=== PATIENT | male | born 1980 | race Caucasian/White ===

== ENCOUNTER 2025-06-20 08:51 | Observation (INO) ==
--- NOTE | 2025-06-20 09:06 | Emergency Department Note ---
History of Present Illness General Chief complaint: Constipation Stated complaint: BOWEL OBSTRUCTION Time Seen by Provider: 06/20/25 08:58 History of Present Illness Maximum Pain Intensity: 10 This is a 44-year-old male who presents to the emergency department via private vehicle with complaints of "constipation, dizziness, abdominal pain, nausea". The patient is a 4 hours prior to arrival he began with sudden onset lower abdominal pain and rectal pain. He thought perhaps he may have had a fecal impaction and did try to extricate some of the fecal matter digitally. He notes the pain continues. He does note some bright red blood at the rectal region. He denies any history of abdominal surgeries. Current pain 10/10. No anticoagulant use. Home Medications Medication Instructions Recorded Confirmed Type diclofenac sodium 1 % topical gel 2 g topical QID 07/24/22 06/20/25 History dextroamphetamine-amphetamine 30 30 mg PO BID 30 days #60 tabs 06/13/25 06/20/25 Rx mg tablet (Adderall) hydroxyzine HCl 25 mg tablet 25 mg PO BID PRN anxiety #60 tabs 06/13/25 06/20/25 Rx Allergies Allergy/AdvReac Type Severity Reaction Status Date / Time LOCALANESTHETIC Allergy Unknown Uncoded 06/13/25 11:28 local anesthetic AdvReac Unknown Uncoded 06/13/25 11:28 Past Med/Surg History Problem List (Updated 06/20/25 @ 12:59 by Carlos Rose PA-C) Constipation (Acute) Anxiety Elevated LDL cholesterol level ADHD (Chronic) Medical History Family history of colon cancer URI (upper respiratory infection) Family history of colon cancer requiring screening colonoscopy COVID-19 Family History Denies family history of Ovarian cancer Prostate cancer Breast cancer Colorectal cancer Social History Smoking Status: Never smoker Tobacco Type: Smokeless Tobacco (Dip or Chew) Age Started Using Tobacco: 18; Age Quit Using Tobacco: 32; packs per day: 1; Second Hand Exposure: Yes; Do You Dip or Chew Tobacco: Yes; Hx Alcohol Use: No Hx Substance Use: No Preferred Language: Bengali Communication Ability: Effective Hearing Ability: Normal marital status: Current Living Situation: Family current occupational status: employed current occupation: [employer] How many Children do You have: 1 Feels Safe at Home: Yes Childhood Exposure to Second-Hand Smoke: Yes Diet: regular caffeine: Yes Dental Care, Regularly: Yes Physical Activity Frequency: 5-6 Times per Week Seatbelt Use: always Sunscreen Use: Yes Assistive Devices: Glasses Review of Systems A total of 10 systems reviewed and were otherwise negative Physical Exam Vital Signs Vital Signs - 24 hr 06/20/25 08:53 06/20/25 09:23 06/20/25 09:24 Temperature 36.1 C L Temperature Source Temporal Artery Scan Pulse Rate 74 60 Pulse Rate [Apical] Pulse Rate from SpO2 Sensor Respiratory Rate 16 Respiratory Effort / Characteristics Non-Labored Respiratory Depth Normal Respiratory Pattern Regular Blood Pressure 112/75 Blood Pressure [Left Arm] Blood Pressure Mean 87 Blood Pressure Mean [Left Arm] Pulse Oximetry 96 97 Oxygen Delivery Method Room Air Room Air Sepsis Recent Fever Within 48 Hours No Sepsis New/Unexplained Change in Mental Status N/A Sepsis Action Taken by Nursing No Action Required 06/20/25 09:45 06/20/25 10:52 06/20/25 10:56 Temperature Temperature Source Pulse Rate 66 Pulse Rate [Apical] 57 L Pulse Rate from SpO2 Sensor 67 Respiratory Rate 17 16 Respiratory Effort / Characteristics Respiratory Depth Respiratory Pattern Blood Pressure 113/54 L Blood Pressure [Left Arm] 113/54 L Blood Pressure Mean 75 Blood Pressure Mean [Left Arm] 73 Pulse Oximetry 99 97 Oxygen Delivery Method Room Air Sepsis Recent Fever Within 48 Hours Sepsis New/Unexplained Change in Mental Status Sepsis Action Taken by Nursing 06/20/25 11:58 Temperature Temperature Source Pulse Rate Pulse Rate [Apical] Pulse Rate from SpO2 Sensor 60 Respiratory Rate Respiratory Effort / Characteristics Respiratory Depth Respiratory Pattern Blood Pressure 138/77 Blood Pressure [Left Arm] Blood Pressure Mean 84 Blood Pressure Mean [Left Arm] Pulse Oximetry 100 Oxygen Delivery Method Sepsis Recent Fever Within 48 Hours Sepsis New/Unexplained Change in Mental Status Sepsis Action Taken by Nursing VITAL SIGNS - Vital signs and nursing notes were reviewed. Stable and afebrile. GENERAL -44-year-old male appearing his stated age who is in no acute distress but appears to be in pain. Communicates well with provider and answers questions appropriately. SKIN - Without rashes. No meningeal or petechial rash. HEAD - NC/AT. EYES - PERRL with EOMI bilaterally. Sclera anicteric. EARS - No deformities of external structures noted on gross examination bilaterally. NOSE - Midline and without cyanosis. No epistaxis or purulent drainage noted. MOUTH/OROPHARYNX - Without perioral cyanosis. LUNGS - Chest wall symmetric without accessory muscle use, intercostals retractions, or central cyanosis. Normal vesicular breath sounds CTA B/L. No wheezes, rales, or rhonchi appreciated. CARDIAC - RRR ABDOMEN - Abdominal contour normal without pulsations or visible masses. BS normoactive all four quadrants. There is lower abdominal tenderness to palpation. No palpable masses, hepatosplenomegaly, or ascites noted. EXTREMITIES - No clubbing or peripheral cyanosis. +5/5 strength noted in UE/LE bilaterally. NEUROLOGIC - Cranial nerves II through XII grossly intact. PSYCH -alert, oriented and pleasant on exam. RECTALverbal consent was obtained. MARIA DE JESUS Delgado was present at bedside. There is formed stool noted within the rectal vault but nearly 1 full finger length from the anus. Small amount of excoriation noted to the perirectal tissues Course Administered Medications Sodium Chloride (Nss) 1,000 mls @ 999 mls/hr IV .Q1H1M ONE Stop: 06/20/25 13:06 Last Admin: 06/20/25 12:23 Dose: 999 mls/hr Documented By: AZAEL Discontinued Medications Bisacodyl (Bisacodyl 5 Mg Tabec) 10 mg PO NOW ONE Stop: 06/20/25 10:31 Last Admin: 06/20/25 10:43 Dose: 10 mg Documented By: NING Glycerin (Glycerin Adult 12 Supp/Box Supp) 1 supp OR NOW ONE Stop: 06/20/25 10:14 Last Admin: 06/20/25 10:43 Dose: 1 supp Documented By: NING Ioversol (Optiray 320 100ml) 94 ml IV ONCE ONE Stop: 06/20/25 09:31 Last Admin: 06/20/25 09:31 Dose: 94 ml Documented By: WILTON Morphine Sulfate (Morphine Sulfate 4 Mg/Ml 1 Ml Carp\\Vial) 4 mg IV NOW STA Stop: 06/20/25 09:06 Last Admin: 06/20/25 09:15 Dose: 4 mg Documented By: NING Ondansetron HCl (Ondansetron Inj 2 Mg/Ml 2 Ml Vial) 4 mg IV NOW STA Stop: 06/20/25 09:06 Last Admin: 06/20/25 09:15 Dose: 4 mg Documented By: NING Polyethylene Glycol/Electrolytes (Lavage Solution 4000ml) 16 dose PO NOW ONE Stop: 06/20/25 10:46 Last Admin: 06/20/25 11:45 Dose: 16 dose Documented By: AZAEL Medical Decision Making Laboratory Data 06/20/25 09:10 06/20/25 09:10 Lab Results 06/20/25 06/20/25 06/20/25 Range/Units 09:10 09:16 09:23 WBC 9.61 (4.8-10.8) K/ul RBC 4.28 L (4.70-6.10) M/uL Hgb 13.2 L (14.0-18.0) g/dl POC Hgb 12.9 L (14.0-18.0) g/dl Hct 36.3 L (42.0-52.0) % POC Hct 38 L (42-52) % MCV 84.8 (80.0-100.0) fL MCH 30.8 (25.0-34.0) pg MCHC 36.4 H (32.0-36.0) g/dL RDW Std Deviation 38.0 (36.4-46.3) fL RDW Coeff of Adrienne 12.4 (11.5-14.5) % Plt Count 252 (130-400) K/uL MPV 9.1 L (9.4-12.4) fL Immature Gran % (Auto) 0.2 % Neut % (Auto) 73.3 % Lymph % (Auto) 16.8 % [place]ford % (Auto) 5.9 % Eos % (Auto) 3.6 % Baso % (Auto) 0.2 % Neut # (Auto) 7.04 H (1.40-6.50) K/uL Lymph # (Auto) 1.61 (1.20-3.40) K/uL Radford # (Auto) 0.57 (0.11-0.59) K/uL Eos # (Auto) 0.35 (0.00-0.50) K/uL Baso # (Auto) 0.02 (0.00-0.20) K/uL Immature Gran # (Auto) 0.02 (0.01-0.20) K/uL POC Sodium 139 (135-144) mmol/L Sodium 138 (136-145) mmol/L POC Potassium 3.5 (3.3-5.0) mmol/L Potassium 3.5 (3.5-5.1) mmol/L POC Chloride 105 (101-112) mmol/L Chloride 106 (98-107) mmol/L Carbon Dioxide 24 (21-32) mmol/L POC Total CO2 21 L (24-31) mmol/L Anion Gap 8 (3-11) POC Anion Gap 18.0 (16-25) mmol/L POC BUN 12 (7-18) mg/dl BUN 13 (6-23) mg/dl Creatinine 0.78 (0.6-1.4) mg/dl POC Creatinine 0.7 (0.6-1.3) mg/dl Est Cr Clr Drug Dosing Not Reportable eGFR 114.19 BUN/Creatinine Ratio 16.7 (10-20) Glucose 116 H (70-99(Fasting)) mg/dl POC Glucose (other) 118 H (70-99) mg/dl Lactate 1.8 (0.4-2.0) mmol/L Calcium 9.0 (8.6-10.3) mg/dl POC Ioniz Calcium Maximo 1.17 (1.12-1.32) mmol/l Total Bilirubin 0.2 (0.2-1.0) mg/dl AST 18 (13-39) U/L ALT 14 (7-52) U/L Alkaline Phosphatase 77 (34-104) U/L Total Protein 7.2 (6.0-8.3) gm/dl Albumin 4.0 (3.4-5.0) gm/dl Globulin 3.2 (2.5-4.0) gm/dl Albumin/Globulin Ratio 1.3 (0.9-2) Imaging Data Radiologist's Impression: Abdomen/Pelvis CT 06/20/25 09:04 CT SCAN OF THE ABDOMEN AND PELVIS WITH IV CONTRAST CLINICAL HISTORY: Lower abdominal pain. Rectal pain. Constipation. COMPARISON STUDY: No priors TECHNIQUE: Following the IV administration of 94 cc of Optiray 320, CT scan of the abdomen and pelvis is performed from the lung bases to the proximal femora. Images are reviewed in the axial, sagittal, and coronal planes. IV contrast was administered without complication. A dose lowering technique was utilized adhering to the principles of ALARA. CT DOSE: 1364.05 mGy.cm FINDINGS: Lung bases: The heart is normal in size and without pericardial effusion. The lung bases are clear. Liver: The contrast-enhanced liver is normal in size, contour, and attenuation. There is no intrahepatic biliary ductal dilatation. The hepatic veins and portal veins are patent. Gallbladder: Unremarkable. Spleen: Normal in size and attenuation. Pancreas: Unremarkable. Adrenal glands: Unremarkable. Kidneys: The contrast enhanced kidneys are normal in size and without hydronephrosis. The kidneys enhance symmetrically. A subcentimeter cortical hypodensity in the left lower pole likely represents a cyst but is too small for definitive characterization. Abdominal vasculature: The abdominal aorta is normal in course and caliber. Bowel: There is rectosigmoid fecal retention and moderate constipation. No bowel obstruction is seen. The rectal wall is minimally thickened and there is perirectal/presacral inflammation. The appearance favors a stercoral proctitis. The appendix is well-visualized and normal. Peritoneum: There is no intraperitoneal free air or abdominal ascites. There is a fat-containing umbilical hernia. Lymphadenopathy: None. Pelvic viscera: The bladder is distended but otherwise normal in appearance. The prostate and seminal vesicles are normal as visualized. Skeletal structures: No lytic or blastic lesions are seen. IMPRESSION: 1. There is rectosigmoid fecal retention and moderate constipation. 2. There is minimal rectal wall thickening with perirectal/presacral infiltration. The appearance favors a stercoral proctitis. Correlate clinically. 3. There is no bowel obstruction. 4. Additional findings as above. ACT 112: Negative or not required by law. Electronically signed by: Miguel Barber M.D. 06/20/2025 10:03 AM MDM Narrative Patient was seen and evaluated as above in room A04b. Review was performed of triage nursing notes and vital signs. I did review pertinent previous visits and patient history. After obtaining a thorough history and physical examination the above work up was performed. Patient presents to us today for evaluation of sudden onset lower abdominal/rectal pain. The patient appears to be in pain on exam. Options of care were discussed with the patient. IV access was established. Labs were drawn. There is no leukocytosis. There is minor anemia with hemoglobin of 13.2. No previous to compare. No emergent metabolic disturbance. Lactate within normal range. Hyperglycemia 116. Options of care were discussed with the patient. The patient was sent straight to the CT suite for further assessment. Patient did ask for pain medication. Although I suspect constipation, at this time a one-time dose of IV analgesia is felt to be reasonable to undergo imaging. I reviewed the imaging. Patient does have a large amount of retained stool. He appears to be fecally impacted. I discussed several options. Verbal consent was obtained after reviewing benefit versus risk and I attempted to disimpact the patient manually. The stool is about 1 complete finger length from the anus. At this time soapsuds enema was trialed. Patient tolerated this well. Small amount of stool was produced. Glycerin suppository then trialed. Minimal stool. CT scan resulted. Results as above. I discussed this with on-call GI, Dr. Anderson at 10:28 PM. Recommendation was to Dulcolax orally followed by GoLytely prep. He noted this could be done at home if tolerated otherwise he could stay if needed. This was started with the patient. Ultimately plan was proceeding with further evaluation and management in the inpatient setting. Case discussed with the hospitalist service. Please refer to further documentation regarding his stay. GCS: 15 In the evaluation and treatment of this patient the following differential diagnoses were entertained: Constipation, colitis, bowel obstruction, diverticulitis, perforation, abscess, among others. Impression & Plan Constipation Discharge Plan Visit Data Chief Complaint: Constipation Stated Complaint: BOWEL OBSTRUCTION ED Provider: Mauri Pemberton ED Midlevel Provider: Carlos Rose Discharge Problem: Constipation Patient Disposition: Admitted As Inpatient Condition: Good Discharge Instructions Interventions: ED Discharge Assessment Last Done: 06/20/25 12:35
[2025-06-20] MEDS: MoRPHine SULFATE 4 MG/ML 1 ML CARP\\VIAL IV STA (09:15)
[2025-06-20] MEDS: ONDANSETRON INJ 2 MG/ML 2 ML VIAL IV STA (09:15)
[2025-06-20 09:30] LABS: Hematocrit (blood only) 36.3 % (42.0-52.0); Hemoglobin 13.2 g/dl (14.0-18.0); Immature Granulocytes # (auto) 0.02 K/uL (0.01-0.20); Immature Granulocytes % (auto) 0.2 %; Mean Corpuscular Hemoglobin 30.8 pg (25.0-34.0); Mean Corpuscular Volume 84.8 fL (80.0-100.0); Platelet Count 252 K/uL (130-400); RDW Standard Deviation 38.0 fL (36.4-46.3); Red Blood Count 4.28 M/uL (4.70-6.10); White Blood Count 9.61 K/ul (4.8-10.8)
[2025-06-20] MEDS: OPTIRAY 320 100ml IV ONE (09:31)
[2025-06-20 09:47] LABS: Alanine Aminotransferase 14 U/L (7-52); Albumin Globulin Ratio 1.3 (0.9-2); Alkaline Phosphatase 77 U/L (34-104); Anion Gap 8 (3-11); Bilirubin,Total 0.2 mg/dl (0.2-1.0); Blood Urea Nitrogen 13 mg/dl (6-23); Calcium 9.0 mg/dl (8.6-10.3); Carbon Dioxide 24 mmol/L (21-32); Chloride 106 mmol/L (98-107); Globulin 3.2 gm/dl (2.5-4.0); Glucose 116 mg/dl (70-99(Fasting)); Potassium 3.5 mmol/L (3.5-5.1); Sodium 138 mmol/L (136-145); Total Protein 7.2 gm/dl (6.0-8.3)
--- NOTE | 2025-06-20 10:05 | CT Scan Report ---
CT SCAN OF THE ABDOMEN AND PELVIS WITH IV CONTRAST CLINICAL HISTORY: Lower abdominal pain. Rectal pain. Constipation. COMPARISON STUDY: No priors TECHNIQUE: Following the IV administration of 94 cc of Optiray 320, CT scan of the abdomen and pelvi s is performed from the lung bases to the proximal femora. Images are reviewed in the axial, sagittal , and coronal planes. IV contrast was administered without complication. A dose lowering technique wa s utilized adhering to the principles of ALARA. CT DOSE: 1364.05 mGy.cm FINDINGS: Lung bases: The heart is normal in size and without pericardial effusion. The lung bases are clear. Liver: The contrast-enhanced liver is normal in size, contour, and attenuation. There is no intrahepa tic biliary ductal dilatation. The hepatic veins and portal veins are patent. Gallbladder: Unremarkable. Spleen: Normal in size and attenuation. Pancreas: Unremarkable. Adrenal glands: Unremarkable. Kidneys: The contrast enhanced kidneys are normal in size and without hydronephrosis. The kidneys enh ance symmetrically. A subcentimeter cortical hypodensity in the left lower pole likely represents a c yst but is too small for definitive characterization. Abdominal vasculature: The abdominal aorta is normal in course and caliber. Bowel: There is rectosigmoid fecal retention and moderate constipation. No bowel obstruction is seen. The rectal wall is minimally thickened and there is perirectal/presacral inflammation. The appearanc e favors a stercoral proctitis. The appendix is well-visualized and normal. Peritoneum: There is no intraperitoneal free air or abdominal ascites. There is a fat-containing umbi lical hernia. Lymphadenopathy: None. Pelvic viscera: The bladder is distended but otherwise normal in appearance. The prostate and seminal vesicles are normal as visualized. Skeletal structures: No lytic or blastic lesions are seen. IMPRESSION: 1. There is rectosigmoid fecal retention and moderate constipation. 2. There is minimal rectal wall thickening with perirectal/presacral infiltration. The appearance fav ors a stercoral proctitis. Correlate clinically. 3. There is no bowel obstruction. 4. Additional findings as above. ACT 112: Negative or not required by law. Electronically signed by: Miguel Barber M.D. 06/20/2025 10:03 AM
[2025-06-20] MEDS ORDERED: LAVAGE SOLUTION 4000ML PO ONE (10:32)
[2025-06-20] MEDS: GLYCERIN ADULT 12 SUPP/BOX SUPP PR ONE (10:43)
[2025-06-20] MEDS: LAVAGE SOLUTION 4000ML PO ONE (11:45)
--- NOTE | 2025-06-20 12:22 | History & Physical Report ---
Date of Service June 20, 2025 Assessment & Plan (1) Constipation: Plan Bharathi is a 44-year-old male with a past medical history of ADHD, anxiety and elevated LDL cholesterol who presents to the hospital with constipation. CT abdomen pelvis reveals rectosigmoid fecal retention with moderate constipation, minimal rectal wall thickening that could be stercoral proctitis. CBC and BMP stable. #Constipation - last BM ~ 1 week ago, with Glycerin and soap suds enema given in ED ER spoke to GI who recommend PO dulcolax and Golytely prep - this is continued Encourage PO hydration and ambulation in the halls stover placed after urinary rention - no hx of this, hopefully able to remove after BM spilled golytely in the ER after 2 cups - will order second Golytely and another PO dulcolax #ADHD - adderall held while inpatient #Anxiety - continue prn hydroxyzine Dispo: obs to med surg until has a bowel movement and can d/c home History of Present Illness Chief Complaint: constipation Primary Care Provider: Miguel Serrano DO Bharathi is a 44-year-old male with a past medical history of ADHD, anxiety and elevated LDL cholesterol who presents to the hospital with constipation. He reports that normally has a bowel movement most days, not every other day. Has not had a sizable bowel movement for over a week. Reports yesterday he did notice blood in his stool and tried to disimpact himself without success. He had 4 hours of abdominal pain that caused him to present to the ER. Denies any recent diet changes or activity level changes, medication changes. Does report that he eats a pretty unhealthy diet. ER course: Morphine 4 mg x 1 IV Zofran 4 mg IV x 1 Glycerin suppository Soapsuds enema Dulcolax p.o. 10 mg x 1 GoLytely started Allergies Allergy/AdvReac Type Severity Reaction Status Date / Time LOCALANESTHETIC Allergy Unknown Uncoded 06/13/25 11:28 local anesthetic AdvReac Unknown Uncoded 06/13/25 11:28 Home Medications Medication Instructions Recorded Confirmed Type diclofenac sodium 1 % topical gel 2 g topical QID 07/24/22 06/20/25 History dextroamphetamine-amphetamine 30 30 mg PO BID 30 days #60 tabs 06/13/25 06/20/25 Rx mg tablet (Adderall) hydroxyzine HCl 25 mg tablet 25 mg PO BID PRN anxiety #60 tabs 06/13/25 06/20/25 Rx Past Med/Surg History Problem List (Updated 06/20/25 @ 12:59 by Carlos Rose PA-C) Constipation (Acute) Anxiety Elevated LDL cholesterol level ADHD (Chronic) Medical History Family history of colon cancer URI (upper respiratory infection) Family history of colon cancer requiring screening colonoscopy COVID-19 Family History Denies family history of Ovarian cancer Prostate cancer Breast cancer Colorectal cancer Social History Smoking Status: Never smoker Tobacco Type: Smokeless Tobacco (Dip or Chew) Age Started Using Tobacco: 18; Age Quit Using Tobacco: 32; packs per day: 1; Second Hand Exposure: Yes; Do You Dip or Chew Tobacco: Yes; Hx Alcohol Use: No Hx Substance Use: No Preferred Language: Polish Communication Ability: Effective Hearing Ability: Normal marital status: Current Living Situation: Family current occupational status: employed current occupation: [employer] How many Children do You have: 1 Feels Safe at Home: Yes Childhood Exposure to Second-Hand Smoke: Yes Diet: regular caffeine: Yes Dental Care, Regularly: Yes Physical Activity Frequency: 5-6 Times per Week Seatbelt Use: always Sunscreen Use: Yes Assistive Devices: Glasses Review of Systems Review of Systems: All systems reviewed & are unremarkable except as noted in Subjective Physical Exam Physical Exam: General: NAD, VS as above Resp: normal respiratory effort, lungs clear to auscultation CV: RRR, no murmur, Abd: hypoactive bowel sounds, non tender, Extremities: Moves all extremities, no edema Neuro: A&O x3, Skin: intact, no lesions noted Results & Data Results & Data Vital Signs (Past 12 Hours) Vital Signs Temp Pulse Pulse Resp BP BP Pulse Ox 06/20/25 11:58 138/77 100 06/20/25 10:56 57 L 16 113/54 L 97 06/20/25 10:52 113/54 L 06/20/25 09:45 66 17 99 06/20/25 09:24 60 06/20/25 09:23 97 06/20/25 08:53 97.0 F L 74 16 112/75 96 O2 Del Method 06/20/25 11:58 06/20/25 10:56 Room Air 06/20/25 10:52 06/20/25 09:45 06/20/25 09:24 06/20/25 09:23 Room Air 06/20/25 08:53 Room Air Laboratory Results CBC and chemistry reviewed Diagnostic Findings CT abdomen pelvis reviewed PG Care Time/CCT Total # of Minutes Spent Total Time Spent with Patient: Total time spent is greater than 50% in coordination of care (as documented) at patient's floor/unit and/or counseling patient: Coding Level of Care Code 13462 INT INP/OBS CARE MIN Diagnoses Constipation K59.00
[2025-06-20] MEDS: SODIUM CHLORIDE 0.9% 1,000 ML IV ONE (12:23)
[2025-06-20] MEDS ORDERED: ACETAMINOPHEN 325 MG TAB PO PRN (12:45)
[2025-06-20] MEDS ORDERED: ONDANSETRON INJ 2 MG/ML 2 ML VIAL IV PRN (12:45)
[2025-06-20] MEDS ORDERED: POLYETHYLENE (MIRALAX) 17 GM PACK PO PRN (12:45)
[2025-06-20] MEDS: KETOROLAC TROMETHAMINE 15 MG/ML VIAL IV ONE (15:17)
[2025-06-20 15:36] VITALS: RESP 20
[2025-06-20 16:11] VITALS: BP 138/83; PULSE 59; TEMP 97.5; O2SAT 98
[2025-06-20] MEDS: LAVAGE SOLUTION 4000ML PO SCH (17:53)
[2025-06-21] MEDS ORDERED: POLYETHYLENE (MIRALAX) 17 GM PACK PO SCH (09:00)
== END 2025-06-20 21:40 | disposition home or self-care (01) ==
LOC: EDINP 08:51 → ED 08:51 → EDINP 12:35 → 3N 16:03